=== PATIENT | female | born 1985 | race African-American/Black ===

== ENCOUNTER 2016-11-12 02:15 | Emergency (ER) | payer MEDICAID ==
[~2016-11-12] VITALS: Ht 157.5 cm; Wt 72.7 kg
[~2016-11-12 02:15] MED LIST: AMOXICILLIN 50500 MG PO; CEPHALEXIN500 M1 PO; COLACE 100100 MG/CAP PO; DOCUSATE CALCI100 MG PO; DOXYCYCLINE 10100 MG PO; IRON325 MG PO; LORTAB 5/500 501 TAB PO; MILK OF MA400 MG/5 M PO; MOTRIN 600600 MG/TAB PO; MOTRIN 800800 MG/TAB PO; NO HOME MEDICATIONS; NORCO 325 MG-51 TAB PO; ONDANSETRON8 MG PO; PERCOCET 325 MG1 TA2 PO; PRENATAL PO; PRENATAL VITAMI1 TA5 PO; REGLAN 10MG10 MG/TAB PO; ULTRAM 50MG TAB50 MG PO; VENTOLIN0.09 MG IH; ZOLOFT50 MG PO
[2016-11-12 02:18] VITALS: BP 111/72; TEMP 98.2
[2016-11-12 03:44] LABS: PH 5 (5-8); SQUAMOUS EPITHELIAL 0-2 /hpf; URINE APPEARANCE Clear; URINE BACTERIA None Seen /hpf; URINE BILIRUBIN Negative (NEGATIVE); URINE BLOOD 3+ (NEGATIVE); URINE COLOR Yellow; URINE GLUCOSE Negative (NEGATIVE); URINE KETONE Negative (NEGATIVE); URINE RBC 0-2 /hpf; URINE UROBILINOGEN Negative (NEGATIVE); URINE WBC 0-2 /hpf
[2016-11-12] MEDS ORDERED: NORCO 325 MG-51 TAB PO (03:51)
[2016-11-12 04:11] VITALS: PULSE 67
== END 2016-11-12 04:14 | disposition home or self-care (01) ==
LOC: COL.ER 02:15
PROVIDERS: Emergency Medicine
DX: S30.0XXA Contusion of lower back and pelvis, initial encounter (principal); W22.8XXA Striking against or struck by other objects, initial encounter; Y93.E6 Activity, residential relocation; Y92.009 Unspecified place in unspecified non-institutional (private) residence as the place of occurrence of the external cause
CPT/HCPCS: J2360

== ENCOUNTER 2017-04-09 22:15 | Emergency (ER) | payer MEDICAID ==
[~2017-04-09] VITALS: Ht 157.5 cm; Wt 63.6 kg
[2017-04-09 22:35] VITALS: BP 105/62; TEMP 98.4
[2017-04-10 00:21] VITALS: PULSE 63
== END 2017-04-10 00:20 | disposition home or self-care (01) ==
LOC: COL.ER 22:15
DX: M25.532 Pain in left wrist (principal); M25.531 Pain in right wrist; M79.642 Pain in left hand; M79.641 Pain in right hand; R20.0 Anesthesia of skin; R20.2 Paresthesia of skin

== ENCOUNTER 2017-05-25 01:01 | Emergency (ER) | payer MEDICAID ==
[2017-05-25 01:03] VITALS: TEMP 97
[2017-05-25] MEDS ORDERED: ULTRAM 50MG TAB50 MG PO (01:06)
[2017-05-25 01:17] VITALS: BP 138/86
[2017-05-25 01:40] VITALS: PULSE 69
== END 2017-05-25 01:40 | disposition home or self-care (01) ==
LOC: COL.ER 01:01
DX: G89.18 Other acute postprocedural pain (principal); M79.641 Pain in right hand; M25.531 Pain in right wrist; J45.909 Unspecified asthma, uncomplicated; F17.210 Nicotine dependence, cigarettes, uncomplicated; Z98.890 Other specified postprocedural states

== ENCOUNTER 2017-12-02 14:28 | Emergency (ER) | payer MEDICAID ==
[~2017-12-02] VITALS: Ht 157.5 cm; Wt 72.7 kg
[2017-12-02 14:33] VITALS: BP 106/67; TEMP 97.7
[2017-12-02] MEDS ORDERED: FLEXERIL 1010 MG/TAB PO (16:22)
[2017-12-02 16:36] VITALS: PULSE 70
== END 2017-12-02 16:37 | disposition home or self-care (01) ==
LOC: COL.ER 14:28
DX: S16.1XXA Strain of muscle, fascia and tendon at neck level, initial encounter (principal); F32.9 Major depressive disorder, single episode, unspecified; F17.210 Nicotine dependence, cigarettes, uncomplicated; J45.909 Unspecified asthma, uncomplicated; Z88.2 Allergy status to sulfonamides; V43.52XA Car driver injured in collision with other type car in traffic accident, initial encounter
CPT/HCPCS: J2360

== ENCOUNTER 2018-01-27 11:17 | Emergency (ER) | payer MEDICAID ==
[~2018-01-27] VITALS: Ht 157.5 cm; Wt 72.7 kg
[~2018-01-27 11:17] MED LIST changes: +FLEXERIL 1010 MG/TAB PO
[2018-01-27 11:19] VITALS: TEMP 98.1
[2018-01-27 12:04] VITALS: BP 116/77; PULSE 75
== END 2018-01-27 12:11 | disposition home or self-care (01) ==
LOC: COL.ER 11:17
DX: M79.671 Pain in right foot (principal); Z88.2 Allergy status to sulfonamides

== ENCOUNTER 2018-01-29 22:41 | Emergency (ER) | payer MEDICAID ==
[2018-01-29 22:45] VITALS: BP 136/76; TEMP 98.6
[2018-01-29 23:55] VITALS: PULSE 87
== END 2018-01-29 23:55 | disposition home or self-care (01) ==
LOC: COL.ER 22:41
DX: M79.671 Pain in right foot (principal); J45.909 Unspecified asthma, uncomplicated; F32.9 Major depressive disorder, single episode, unspecified; F17.210 Nicotine dependence, cigarettes, uncomplicated; Z88.1 Allergy status to other antibiotic agents; Z98.890 Other specified postprocedural states; X58.XXXA Exposure to other specified factors, initial encounter

== ENCOUNTER 2018-02-22 15:18 | Emergency (ER) | payer MEDICAID ==
[~2018-02-22] VITALS: Ht 157.5 cm; Wt 63.6 kg
[2018-02-22] MEDS ORDERED: DIFLUCAN150 MG PO (16:29)
[2018-02-22 16:41] VITALS: BP 113/70; PULSE 84; TEMP 98.6
== END 2018-02-22 16:41 | disposition home or self-care (01) ==
LOC: COL.ER 15:18
DX: N76.0 Acute vaginitis (principal); F17.210 Nicotine dependence, cigarettes, uncomplicated; F12.90 Cannabis use, unspecified, uncomplicated; Z88.2 Allergy status to sulfonamides; Z98.890 Other specified postprocedural states

== ENCOUNTER 2018-09-11 09:47 | Emergency (ER) | payer MEDICAID ==
[~2018-09-11] VITALS: Ht 157.5 cm; Wt 63.6 kg
[~2018-09-11 09:47] MED LIST changes: +DIFLUCAN150 MG PO
[2018-09-11 09:51] VITALS: BP 134/73; TEMP 99
[2018-09-11] MEDS ORDERED: CAPACET 325 MG-1 CAP (09:55)
[2018-09-11] MEDS ORDERED: FLEXERIL 1010 MG/TAB PO (09:55)
[2018-09-11] MEDS ORDERED: PREDNISONE20 MG PO (10:07)
[2018-09-11] MEDS ORDERED: NEURONTIN300 MG/CAP PO (10:07)
[2018-09-11] MEDS ORDERED: LIDODERM 5% PATC1 EA TP (10:08)
[2018-09-11 10:28] VITALS: PULSE 96
== END 2018-09-11 10:36 | disposition home or self-care (01) ==
LOC: COL.ER 09:47
DX: M54.2 Cervicalgia (principal); J45.909 Unspecified asthma, uncomplicated; F17.210 Nicotine dependence, cigarettes, uncomplicated; Z98.890 Other specified postprocedural states
CPT/HCPCS: J1885; J7512

== ENCOUNTER 2019-05-29 11:01 | Emergency (ER) | payer OTHER ==
[~2019-05-29] VITALS: Ht 157.5 cm; Wt 68.2 kg
[~2019-05-29 11:01] MED LIST changes: +CAPACET 325 MG-1 CAP; +LIDODERM 5% PATC1 EA TP; +NEURONTIN300 MG/CAP PO; +PREDNISONE20 MG PO
[2019-05-29] MEDS ORDERED: FLEXERIL 1010 MG/TAB PO (13:19)
[2019-05-29] MEDS ORDERED: LIDODERM 5% PATC1 EA TP (13:19)
[2019-05-29] MEDS ORDERED: MEDROL 4MG DOSPA4 MG PO (13:19)
[2019-05-29 13:33] VITALS: BP 102/62; PULSE 80; TEMP 98.2
== END 2019-05-29 13:34 | disposition home or self-care (01) ==
LOC: COL.ER 11:01
DX: M54.41 Lumbago with sciatica, right side (principal); J45.909 Unspecified asthma, uncomplicated; F17.210 Nicotine dependence, cigarettes, uncomplicated; Z98.890 Other specified postprocedural states; Z79.52 Long term (current) use of systemic steroids; V43.52XA Car driver injured in collision with other type car in traffic accident, initial encounter

== ENCOUNTER 2019-07-03 18:16 | Emergency (ER) | payer MEDICAID ==
[~2019-07-03] VITALS: Ht 157.5 cm; Wt 63.6 kg
[~2019-07-03 18:16] MED LIST changes: +MEDROL 4MG DOSPA4 MG PO
[2019-07-03 18:20] VITALS: BP 113/69; TEMP 98.4
[2019-07-03 18:45] LABS: COLLECTION METHOD CLEAN CATCH
[2019-07-03 19:04] LABS: MUCOUS Present /lpf; PH 5 (5-8); URINE APPEARANCE Hazy; URINE BACTERIA Rare /hpf; URINE BILIRUBIN Negative (NEGATIVE); URINE BLOOD Negative (NEGATIVE); URINE COLOR Yellow; URINE GLUCOSE Negative (NEGATIVE); URINE KETONE Trace (NEGATIVE); URINE LEUKOCYTE ESTERASE Negative (NEGATIVE); URINE NITRATE Negative (NEGATIVE); URINE PROTEIN(semi-quant) 1+ (NEGATIVE); URINE RBC 0-2 /hpf
[2019-07-03 19:10] LABS: BASO # 0.1 (0.0-0.2); BASO % 0.6 % (0.0-2.0); EOS # 0.3 (0.0-0.7); EOS % 2.2 % (0-4.0); GRAN % 58.2 % (42.2-75.2); LYMPH # 3.7 (1.2-3.4); LYMPH % 30.9 % (20.0-51.0); MEAN CELL VOLUME 80 fl (80.0-100.0); MEAN CORPUSCULAR HEMOGLOBIN 27 pg (27.0-31.0); MEAN CORPUSCULAR HGB CONC 33 g/dl (33.0-37.0); MEAN PLATELET VOLUME 9.6 fl (7.4-10.4); MONO # 0.9 (0.1-0.6); MONO % 7.7 % (1.7-9.3); PLATELET COUNT 361 K/mm3 (130-400); RED BLOOD COUNT 4.15 M/mm3 (4.10-5.30); REDCELL DISTRIBUTION WIDTH-CV 17.4 % (11.5-14.5)
[2019-07-03 19:22] LABS: ALBUMIN 4.4 gm/dL (3.5-5.0); BILIRUBIN,TOTAL 0.1 mg/dL (0.0-1.0); CALCIUM 9.1 mg/dL (8.4-10.2); CREATININE, serum 0.49 (0.52-1.25); POTASSIUM 3.8 mmol/L (3.4-5.0); TOTAL PROTEIN 7.9 gm/dL (6.4-8.2)
[2019-07-03 19:30] LABS: HEMATOCRIT 33.1 % (37.0-47.0)
[2019-07-03] MEDS ORDERED: PHENERGAN 25 TA25 MG PO (21:13)
[2019-07-03 21:50] VITALS: PULSE 84
== END 2019-07-03 21:55 | disposition home or self-care (01) ==
LOC: COL.ER 18:16
PROVIDERS: Nurse Practitioner
DX: O26.891 Other specified pregnancy related conditions, first trimester (principal); O99.331 Smoking (tobacco) complicating pregnancy, first trimester; O99.341 Other mental disorders complicating pregnancy, first trimester; R10.2 Pelvic and perineal pain; F32.9 Major depressive disorder, single episode, unspecified; Z88.2 Allergy status to sulfonamides; Z3A.01 Less than 8 weeks gestation of pregnancy
CPT/HCPCS: J2550; J7030

== ENCOUNTER 2019-08-21 22:55 | Emergency (ER) | payer MEDICAID ==
[~2019-08-21] VITALS: Ht 157.5 cm; Wt 72.7 kg
[~2019-08-21 22:55] MED LIST changes: +PHENERGAN 25 TA25 MG PO
[2019-08-21 23:00] VITALS: TEMP 98
[2019-08-21 23:44] LABS: COLLECTION METHOD CLEAN CATCH
[2019-08-21 23:55] LABS: AMORPHOUS CRYSTAL Present /uL; MUCOUS Present /lpf; PH 8 (5-8); URINE APPEARANCE Cloudy; URINE BACTERIA None Seen /hpf; URINE BILIRUBIN Negative (NEGATIVE); URINE BLOOD 1+ (NEGATIVE); URINE COLOR Yellow; URINE GLUCOSE Negative (NEGATIVE); URINE KETONE Negative (NEGATIVE); URINE LEUKOCYTE ESTERASE Negative (NEGATIVE); URINE NITRATE Negative (NEGATIVE); URINE PROTEIN(semi-quant) 1+ (NEGATIVE); URINE UROBILINOGEN Negative (NEGATIVE)
[2019-08-22] MEDS ORDERED: FLAGYL500 MG PO (01:27)
[2019-08-22 01:33] VITALS: BP 108/72; PULSE 78
== END 2019-08-22 01:33 | disposition home or self-care (01) ==
LOC: COL.ER 22:55
PROVIDERS: Nurse Practitioner
DX: O23.591 Infection of other part of genital tract in pregnancy, first trimester (principal); B96.89 Other specified bacterial agents as the cause of diseases classified elsewhere; O99.611 Diseases of the digestive system complicating pregnancy, first trimester; K59.00 Constipation, unspecified; O99.341 Other mental disorders complicating pregnancy, first trimester; F32.9 Major depressive disorder, single episode, unspecified; O99.331 Smoking (tobacco) complicating pregnancy, first trimester; F17.210 Nicotine dependence, cigarettes, uncomplicated; Z88.2 Allergy status to sulfonamides; Z98.890 Other specified postprocedural states; Z3A.12 12 weeks gestation of pregnancy

== ENCOUNTER 2019-12-22 14:13 | Outpatient (CLI) | payer MEDICAID ==
[~2019-12-22] VITALS: Ht 157.5 cm; Wt 71.8 kg
--- NOTE | 2019-12-22 14:05 | NUR ---
Pt escorted to unit with this RN from ED. Pt states pelvic pain since 12/21/19 evening that rates 8/10 pain. Denies medication for pain relief. Denies regular ctx, vaginal bleeding, LOF and reports GFM. Changed into a clean gown. EFM and toco applied. VSS. Denies fever, cough, difficulty breathing. SVE per this RN CL/50. Admission assessment completed. Ice water given. Bed locked in low position. Call light within reach. Updated on POC. No questions or concerns at this time.
[~2019-12-22 14:13] MED LIST changes: +FLAGYL500 MG PO
[2019-12-22 14:44] VITALS: BP 106/58; PULSE 96; TEMP 97.8
== END 2019-12-22 14:45 | disposition home or self-care (01) ==
LOC: LDRO 14:13
DX: O26.893 Other specified pregnancy related conditions, third trimester (principal); Z3A.31 31 weeks gestation of pregnancy

== ENCOUNTER 2020-01-21 23:14 | Outpatient (CLI) | payer MEDICAID ==
[~2020-01-21] VITALS: Ht 157.5 cm; Wt 77.3 kg
[2020-01-21 23:30] VITALS: BP 115/68; PULSE 100; TEMP 98.3
--- NOTE | 2020-01-21 23:30 | NUR ---
2330 G5L3 35.1 WEEK GEST WITH REPEAT C/S TO LR6 AT 2310 WITH C/O BACKPAIN SINCE YESTERDAY AND SOME NAUSEA. EFM ON. SVE //HIGH. ADM ASSESSMENT DONE. PT STATES PAIN IN BACK THAT COMES AND GOES. 0000 DR MONTANEZ HERE AND REPORT GIVEN. REVIEWED STRIP AND ORDER TO RECHECK CERVIX AND MAY GO HOME IF NO CHANGE.
[2020-01-21] MEDS ORDERED: PRENATAL TABLET PO (23:39)
[2020-01-21 23:40] VITALS: BP 115/68; PULSE 100; TEMP 98.3
--- NOTE | 2020-01-22 00:20 | NUR ---
0020 ES TYLENOL 1000MG AND VISTARIL 25MG PO GIVEN PER DRS ORDER 0030 SVE WITH NO CERVICAL CHANGE. PT CONTS TO HAVE IRREGULAR BACK PAINS. ENCOURAGED TO DRINK WATER WHILE HERE BUT ONLY TOOK A COUPLE OF SIPS. 0045 HOME WITH INSTRUCTIONS.
== END 2020-01-22 00:45 | disposition home or self-care (01) ==
LOC: LDRO 23:14
DX: O26.893 Other specified pregnancy related conditions, third trimester (principal); Z3A.35 35 weeks gestation of pregnancy

== ENCOUNTER 2020-02-18 09:24 | Inpatient (IN) | payer MEDICAID ==
[2020-02-18] VITALS (18 sets, daily range): BP systolic 97–128; BP diastolic 54–75; PULSE 63–96; TEMP 97.2–98.4
[~2020-02-18] VITALS: Ht 157.6 cm; Wt 75.0 kg
[~2020-02-18 09:24] MED LIST changes: +PRENATAL TABLET PO
--- NOTE | 2020-02-18 09:30 | NUR ---
Patient ambulatory onto unit with at side for scheduled section. Patient into Room 209, oriented to room and plan of care, patient changes into gown. EFMs on, VS taken. IV attempted in left hand by this RN. IV started in left wrist by Shellie LEES. LR infusing per orders. Pepcid given per orders. Assessment completed. Consents signed.
[2020-02-18 10:13] LABS: BASO # 0.1 (0.0-0.2); BASO % 0.6 % (0.0-2.0); EOS # 0.2 (0.0-0.7); GRAN # 7.1 (1.4-6.5); GRAN % 65.3 % (42.2-75.2); LYMPH # 2.5 (1.2-3.4); LYMPH % 23.5 % (20.0-51.0); MEAN CELL VOLUME 83 fl (80.0-100.0); MEAN CORPUSCULAR HGB CONC 33 g/dl (33.0-37.0); MEAN PLATELET VOLUME 9.9 fl (7.4-10.4); MONO # 0.8 (0.1-0.6); MONO % 7.6 % (1.7-9.3); PLATELET COUNT 369 K/mm3 (130-400); RED BLOOD COUNT 3.66 M/mm3 (4.10-5.30); REDCELL DISTRIBUTION WIDTH-CV 15.3 % (11.5-14.5)
[2020-02-18 10:14] LABS: HEMATOCRIT 30.2 % (37.0-47.0); HEMOGLOBIN 9.9 g/dl (12.5-16.0); MEAN CORPUSCULAR HEMOGLOBIN 27 pg (27.0-31.0)
[2020-02-18 10:24] LABS: TRICYCLIC ANTIDEPRESS URINE NEGATIVE
--- NOTE | 2020-02-18 11:00 | NUR ---
Patient ambulatory to OR at this time.
--- NOTE | 2020-02-18 12:15 | NUR ---
Patient to PACU. This RN remains at side.
--- NOTE | 2020-02-18 13:00 | NUR ---
Patient back to Room 209 via bed. Oriented to room and plan of care. Juice and crackers provided. Regular diet in room. at bedside.
[2020-02-19 04:20] VITALS: BP 112/61; PULSE 68; TEMP 98.2
[2020-02-19 07:39] VITALS: BP 120/72; PULSE 71; TEMP 97.4
--- NOTE | 2020-02-19 10:02 | NUR ---
AMY responded to a professor of social work consult for the patient due to positive UDS at admission, history of drug use and history of anxiety and depression. AMY reviewed the patient record and found the following. The patient tested positive for during for marijuana on 08/13/2019, positive for methamphetamine 12/30/2019 and positive for oxycodone upon admission for on 02/18/2020. The patient's baby tested positive for oxycodone 02/17. The baby cord blood is pending. The baby is currently under NS Abstinence Scoring protocal. If the scoring worsens the baby will get sent for treatment. Per patient's nurse the mother is fine and appropriate with the baby this day. On 02/17 the patient was in pain and was not too involved with the baby. facilities maintenance worker met with the patient. The patient's Lloyd Crawford was present and AMY obtained persmission to continue with conversation. The patient has the supplies she needs and plans on applying for WIC. She has three other children in the home. AMY addressed the history of depression and anxiety. The patient currently does not get seen for this but she will discuss her needs with her PCP. Dr. Looney had given the patient some medications for these issues during but the patient did not like how they made her feel, so she stopped. The patient stated that he father in August. Her mother too but she did not say when. AMY addressed the drug use. The patient states she does not know why she tested positive for methamphetamine. The patient admits to marijuana use for anxiety, nausea and to induce appetite. She stopped after discussion with her doctor. She had a negative UDS on 01/13/2020. AMY addressed the positive UDS at admission. The patient states that her , Lloyd has oxycodone at home due to his ankle surgery and she must have taken an oxycodone by mistake. (The patient stated the same story to the nurse). Lloyd confirmed to AMY he does have a prescription for the oxycodone. AMY informed the patient and Lloyd that a CPS report would be made. Report # [id number] (Baby Girl Daniel [id number]) AMY collaborated the above information with the patient's nurse and Dr. James.
--- NOTE | 2020-02-19 14:04 | NUR ---
Food Preparation Supervisor received a phone call from AMY Johnston from [facility]. AMY provided information about patient and patient's infant from progress notes and assessments. Vickie advised that she is going to attempt to contact patient by phone and may visit in person. Vickie advised that at this time they are doing as much by phone as possible. AMY to continue to follow as needed.
[2020-02-19 17:15] VITALS: BP 115/55; PULSE 69
[2020-02-19 20:00] VITALS: BP 112/65; PULSE 83; TEMP 97.9
[2020-02-20] MEDS ORDERED: MOTRIN 800800 MG/TAB PO (08:17)
[2020-02-20] MEDS ORDERED: PERCOCET 325 MG1 TA2 PO (08:18)
[2020-02-20 08:30] VITALS: BP 115/75; PULSE 80; TEMP 98.2
--- NOTE | 2020-02-20 10:15 | NUR ---
DISCHARGE INSTRUCTIONS GIVEN. DISCUSSED BORDER STATUS WITH MOTHER. ENCOURAGED MOTHER TO ONLY LEAVE ONCE DAILY DUE TO COVID RESTRICTIONS. ENCOURAGED TO WEAR MASK/USE HAND WARRANTY ADMINISTRATOR IF GOING ANYWHERE BUT HOME. MOTHER STATES SHE JUST WANTS TO "CHECK ON" HER CHILDREN AND WILL RETURN AROUND "4 O'CLOCK." FATHER OF BABY STAYING TO PREFORM CARES FOR BABY. MOTHER OF BABY ENCOURAGED TO RETURN AND STAY THE NIGHT SO SHE CAN HELP WITH BABIES CARES DURING MONITORING AND ABSTINENCE SCORING SO SHE KNOWS HOW TO CALM BABY. MOTHER VERBALIZED UNDERSTANDING. MOTHER INSTRUCTED NOT TO TAKE PERCOCET WHEN DRIVING. MOTHER VERBALIZES UNDERSTANDING. MOTHER TURNED OVER TO BORDER STATUS AT 1030 AND LEAVES HOSPITAL TO CHECK ON CHILDREN.
== END 2020-02-20 10:30 | disposition home or self-care (01) | DRG 788 ==
LOC: OB 09:24 → LDR 09:38 → OB 02-20 10:30
PROVIDERS: ADMIT Obstetrics & Gynecology
PROC: 10D00Z1 Extraction of Products of Conception, Low, Open Approach (ICD-10-PCS; principal; 2020-02-18)
DX: O34.211 Maternal care for low transverse scar from previous cesarean delivery (principal); Z3A.39 39 weeks gestation of pregnancy; O99.02 Anemia complicating childbirth; Z88.0 Allergy status to penicillin; Z88.2 Allergy status to sulfonamides; O99.52 Diseases of the respiratory system complicating childbirth; J45.909 Unspecified asthma, uncomplicated
CPT/HCPCS: J0171; J0690; J1885; J2250; J2270; J2370; J2405; J2590; J3010; J7120

== ENCOUNTER 2020-02-25 07:49 | Emergency (ER) | payer MEDICAID ==
[~2020-02-25] VITALS: Ht 157.5 cm; Wt 75.0 kg
[2020-02-25 07:53] VITALS: BP 120/80; TEMP 98.4
[2020-02-25 08:39] LABS: BASO # 0.1 (0.0-0.2); BASO % 0.7 % (0.0-2.0); EOS # 0.2 (0.0-0.7); EOS % 2.3 % (0-4.0); GRAN # 5.4 (1.4-6.5); HEMOGLOBIN 10.1 g/dl (12.5-16.0); LYMPH # 2.3 (1.2-3.4); LYMPH % 26.5 % (20.0-51.0); MEAN CELL VOLUME 82 fl (80.0-100.0); MEAN CORPUSCULAR HEMOGLOBIN 27 pg (27.0-31.0); MEAN CORPUSCULAR HGB CONC 33 g/dl (33.0-37.0); MONO # 0.7 (0.1-0.6); MONO % 7.8 % (1.7-9.3); PLATELET COUNT 477 K/mm3 (130-400); RED BLOOD COUNT 3.72 M/mm3 (4.10-5.30); REDCELL DISTRIBUTION WIDTH-CV 15.8 % (11.5-14.5)
[2020-02-25 08:47] LABS: HEMATOCRIT 30.6 % (37.0-47.0)
[2020-02-25 09:17] LABS: INR 1.2 (0.8-3.0)
[2020-02-25 09:23] LABS: ALANINE AMINOTRANSFERASE 20 U/L (4-34); ALBUMIN 3.6 gm/dL (3.5-5.0); ALKALINE PHOSPHATASE 144 U/L (50-136); ANION GAP 8 mmol/L (7-16); AST,SGOT 32 U/L (15-37); BILIRUBIN,TOTAL 0.3 mg/dL (0.0-1.0); BLOOD UREA NITROGEN 13 mg/dL (7-17); CARBON DIOXIDE 26 mmol/L (22-30); CHLORIDE 105 mmol/L (98-107); GLUCOSE 111 mg/dL (74-106); LIPASE 45 U/L (23-300); POTASSIUM 3.5 mmol/L (3.4-5.0); SODIUM 138 mmol/L (137-145); TOTAL PROTEIN 7.6 gm/dL (6.4-8.2)
[2020-02-25 09:44] LABS: TROPONIN-I < 0.012 ng/mL (0.000-0.035)
[2020-02-25 10:15] VITALS: PULSE 81
== END 2020-02-25 10:15 | disposition home or self-care (01) ==
LOC: COL.ER 07:49
PROVIDERS: Emergency Medicine
DX: R07.89 Other chest pain (principal); F17.210 Nicotine dependence, cigarettes, uncomplicated
CPT/HCPCS: J1885

== ENCOUNTER 2021-06-13 00:44 | Emergency (ER) | payer MEDICAID ==
[~2021-06-13] VITALS: Ht 160 cm; Wt 63.6 kg
[2021-06-13 00:52] VITALS: TEMP 98.5
[2021-06-13 01:13] LABS: BASO # 0.1 (0.0-0.2); BASO % 0.5 % (0.0-2.0); EOS % 0.4 % (0-4.0); GRAN # 6.9 (1.4-6.5); GRAN % 74.5 % (42.2-75.2); LYMPH # 1.7 (1.2-3.4); LYMPH % 18.4 % (20.0-51.0); MEAN CELL VOLUME 72 fl (80.0-100.0); MEAN CORPUSCULAR HGB CONC 32 g/dl (33.0-37.0); MEAN PLATELET VOLUME 9.1 fl (7.4-10.4); MONO # 0.6 (0.1-0.6); PLATELET COUNT 279 K/mm3 (130-400); RED BLOOD COUNT 4.23 M/mm3 (4.10-5.30); REDCELL DISTRIBUTION WIDTH-CV 21.7 % (11.5-14.5)
[2021-06-13 01:32] LABS: ALANINE AMINOTRANSFERASE 9 U/L (0-55); ALBUMIN 3.9 gm/dL (3.5-5.0); ALKALINE PHOSPHATASE 57 U/L (0-750); ANION GAP 10 mmol/L; AST,SGOT 14 U/L (5-34); BILIRUBIN,TOTAL 0.3 mg/dL (0.2-1.2); BLOOD UREA NITROGEN 4 mg/dL (7-19); CALCIUM 9.3 mg/dL (8.4-10.2); CARBON DIOXIDE 21 mEq/L (22-29); CHLORIDE 104 mmol/L (98-107); CREATININE, serum 0.69 mg/dL (0.57-1.11); GLUCOSE 113 mg/dL (70-99); LIPASE < 10 U/L (8-78); POTASSIUM 3.8 mmol/L (3.5-4.5); SODIUM 135 mmol/L (136-145); TOTAL PROTEIN 8.1 gm/dL (6.2-8.1)
[2021-06-13 01:35] LABS: HEMATOCRIT 30.4 % (37.0-47.0); HEMOGLOBIN 9.8 g/dl (12.5-16.0); MEAN CORPUSCULAR HEMOGLOBIN 23 pg (27.0-31.0)
[2021-06-13 02:31] LABS: COLLECTION METHOD CLEAN CATCH
[2021-06-13 02:39] LABS: MUCOUS Present /lpf; PH 7 (5-8); URINE APPEARANCE Hazy; URINE BACTERIA None Seen /hpf; URINE BILIRUBIN Negative (NEGATIVE); URINE BLOOD Negative (NEGATIVE); URINE COLOR Yellow; URINE GLUCOSE Negative (NEGATIVE); URINE KETONE Negative (NEGATIVE); URINE LEUKOCYTE ESTERASE Negative (NEGATIVE); URINE NITRATE Negative (NEGATIVE); URINE PROTEIN(semi-quant) Negative (NEGATIVE); URINE UROBILINOGEN Negative (NEGATIVE)
[2021-06-13 02:53] LABS: TRICYCLIC ANTIDEPRESS URINE NEGATIVE
[2021-06-13] MEDS ORDERED: PEPCID 20MG TAB20 MG PO (04:16)
[2021-06-13] MEDS ORDERED: ZOFRAN ODT4 MG PO (04:16)
[2021-06-13] MEDS ORDERED: COLACE 100100 MG/CAP PO (05:04)
[2021-06-13] MEDS ORDERED: SENNA-LAX8.6 MG PO (05:04)
[2021-06-13 05:12] VITALS: BP 138/84; PULSE 89
== END 2021-06-13 05:12 | disposition home or self-care (01) ==
LOC: COL.ER 00:44
PROVIDERS: Physician Assistant
DX: K80.20 Calculus of gallbladder without cholecystitis without obstruction (principal); D64.9 Anemia, unspecified; K59.00 Constipation, unspecified; F17.210 Nicotine dependence, cigarettes, uncomplicated; Z88.0 Allergy status to penicillin; Z88.2 Allergy status to sulfonamides; Z32.02 Encounter for pregnancy test, result negative
CPT/HCPCS: C9113; J2270; J2405; J2550; J7030; Q9967

== ENCOUNTER 2021-06-16 11:08 | Day surgery (SDC) | payer MEDICAID ==
[~2021-06-16] VITALS: Ht 157.5 cm; Wt 64.3 kg
[~2021-06-16 11:08] MED LIST changes: +PEPCID 20MG TAB20 MG PO; +SENNA-LAX8.6 MG PO; +ZOFRAN ODT4 MG PO
--- NOTE | 2021-06-16 12:15 | NUR ---
Patient reports suicide attempt several years in the past. Request to speak with someone while at the hospital about resources if suicidal thoughts return. disabilities services officer came to speak with patient and reported that patient refused any services at this time.
[2021-06-16 12:24] VITALS: BP 115/82; PULSE 89; TEMP 98.1
[2021-06-16 13:20] LABS: BILIRUBIN,TOTAL 0.3 mg/dL (0.2-1.2); CALCIUM 8.9 mg/dL (8.4-10.2); CREATININE, serum 0.71 mg/dL (0.57-1.11); POTASSIUM 3.4 mmol/L (3.5-4.5); TOTAL PROTEIN 8.3 gm/dL (6.2-8.1)
--- NOTE | 2021-06-16 13:58 | NUR ---
Central Scheduler received consult for patient as she reported a previous suicide attempt. Patient lives in [place] with her , Tommie and her four children ages 13, 10, 7, and 1. Patient states she is not currently receiving any mental health services and does not feel like things have ever got to the point that she needs to see a counselor or therapist. Patient states she is "okay" and does not wish this SW to set up any services for her at this time. Patient reports she feels safe at home and that she talks with her cousin, who lives nearby whenever she is stuggling. No additional needs identified at this time.
--- NOTE | 2021-06-16 14:10 | NUR ---
Patient called out and asked to be discharged and to be rescheduled procedure. Spoke with patient about possible options for childcare and ride home. Patient still wants to be discharged to go home. 1440 - Dr. Sterling in to speak with patient. brought to bed side to be able to discuss plan for discharge. Patient agrees to stay for surgery. 1455 - Patient had positive drug screening for recreational drugs and multiple medications that patient denies taking. Reported to anesthesia, no new orders.
[2021-06-16] MEDS ORDERED: NORCO 325 MG-51 TAB PO (16:23)
[2021-06-16 17:12] VITALS: BP 142/82; PULSE 77; TEMP 98.7
--- NOTE | 2021-06-16 17:12 | NUR ---
The patient arrived back to [facility] from the recovery room at this time. The patient appears drowsy but arouses easily to her name. The patient has an ice pack in place to her right lower abdomen and reports that most of her discomfort is located in this area. The nurse discussed gas pain with the patient and encouraged her to start moving around to help pass the gas and taking deep breaths to breathe through the pain. Post op vital signs were started. 4 bandaids to her abdomen that appear clean, dry and intact. The patient's is at her bedside. Call light is within reach. The patient has ice chips at her bedside. Will continue to monitor the patient.
[2021-06-16 17:27] VITALS: BP 130/89; PULSE 89
--- NOTE | 2021-06-16 17:27 | NUR ---
The patient appears to be resting comfortably on the cart at this time. The patient's vital signs appear stable. Call light remains within reach. Will continue to monitor the patient.
[2021-06-16 17:42] VITALS: BP 121/77; PULSE 82
--- NOTE | 2021-06-16 17:42 | NUR ---
The patient agrees to try a sprite at this time. The patient's left to move their car to the ER parking lot as the patient entrance closes at 1730. The patient was given a warm blanket to place across her abdomen at this time.
[2021-06-16 17:57] VITALS: BP 130/81; PULSE 73
--- NOTE | 2021-06-16 18:00 | NUR ---
The patient ambulated to the bathroom with the stand by assistance of two nurses and appeared to tolerate the activity well. The patient voided without difficulty. Upon returning to her cart she agrees to try some toast. Vital signs appear stable. The patient was INT'd as she is eating and drinking.
--- NOTE | 2021-06-16 18:30 | NUR ---
Discharge instructions were reviewed with the patient at this time. She verbalized understanding and has no questions for the nurse at this time. The patient's IV to her right hand was removed and a pressure dressing was applied to the site. The nurse instructed the patient to get dressed and notify the staff when she is ready to be escorted out.
--- NOTE | 2021-06-16 18:39 | NUR ---
The patient was escorted out via wheelchair to a private vehicle by NABEEL Montaño. The patient's belongings and discharge paperwork were sent with her. The patient's is present to drive her home.
== END 2021-06-16 18:40 | disposition home or self-care (01) ==
LOC: SDCO 11:08
PROVIDERS: Surgery
DX: K80.10 Calculus of gallbladder with chronic cholecystitis without obstruction (principal); J45.909 Unspecified asthma, uncomplicated; K58.9 Irritable bowel syndrome, unspecified; D64.9 Anemia, unspecified; F17.210 Nicotine dependence, cigarettes, uncomplicated; F32.9 Major depressive disorder, single episode, unspecified; F41.9 Anxiety disorder, unspecified; Z79.899 Other long term (current) drug therapy; Z20.822 Contact with and (suspected) exposure to COVID-19; Z80.1 Family history of malignant neoplasm of trachea, bronchus and lung; Z83.3 Family history of diabetes mellitus; Z82.3 Family history of stroke
CPT/HCPCS: J1170; J1885; J2250; J2405; J2550; J2704; J3010; J7120